=== PATIENT | male | born 1995 | race Hispanic/Latino ===

== ENCOUNTER 2020-01-15 12:03 | Emergency (ER) | payer OTHER ==
[~2020-01-15] VITALS: Ht 170.2 cm; Wt 87.1 kg
[2020-01-15 12:42] LABS: BASOPHILS # (AUTO) 0.1 (0.0-0.1); BASOPHILS % 0.8 % (0.0-1.0); EOSINOPHILS # (AUTO) 0.1 (0.0-0.4); EOSINOPHILS % 1.4 % (0.0-6.0); HEMATOCRIT 50.2 % (38.2-49.6); HEMOGLOBIN 17.8 g/dL (14.0-18.0); LYMPHOCYTES # (AUTO) 2.9 (1.0-3.2); LYMPHOCYTES % 40.4 % (18.0-39.1); MEAN CORPUSCULAR HEMOGLOBIN 30.4 pg (28-32); MEAN CORPUSCULAR HGB CONC 35.5 g/dL (31-35); MEAN CORPUSCULAR VOLUME 85.8 fL (81-99); MONOCYTES # (AUTO) 0.7 (0.2-0.8); MONOCYTES % 9.3 % (4.4-11.3); NEUTROPHILS # (AUTO) 3.4 (2.1-6.9); NEUTROPHILS % 47.8 % (38.7-80.0); PLATELET COUNT 317 x10e3/uL (140-360); RED BLOOD COUNT 5.85 x10e6/uL (4.3-5.7); RED CELL DISTRIBUTION WIDTH 12.4 % (11.7-14.4)
[2020-01-15 13:00] LABS: ALANINE AMINOTRANSFERASE 48 IU/L (0-55); ALBUMIN/GLOBULIN RATIO 1.3 (0.8-2.0); ALKALINE PHOSPHATASE 97 IU/L (40-150); BLOOD UREA NITROGEN 9 mg/dL (7-26); BUN/CREATININE RATIO 8 (6-25); CALCIUM 9.1 mg/dL (8.4-10.2); CARBON DIOXIDE 28 mmol/L (22-29); CHLORIDE 106 mmol/L (98-107); CREATININE, SERUM 1.06 mg/dL (0.72-1.25); EST GLOMERULAR FILTRATION RATE > 60 ML/MIN (60-); GLUCOSE 91 mg/dL (74-118); POTASSIUM 3.9 mmol/L (3.5-5.1); SODIUM 136 mmol/L (136-145)
[2020-01-15 13:08] LABS: ANION GAP 5.9 mmol/L (8-16)
[2020-01-15] MEDS ORDERED: SODIUM CHLORIDE 0.9% 100 ML ONE (13:23)
[2020-01-15] MEDS ORDERED: IOPAMIDOL 370 MG/ML 200 ML INFUS..BTL INJ ONE (13:23)
--- NOTE | 2020-01-15 14:59 | Diagnostic Imaging Report ---
History:Right-sided numbness Comparison studies:None Technique: Feel images were obtained from the vertex through the skull base following the administration of IV contrast. Coronal, sagittal as well as MIP and 3-D volume rendered reformats were obtained from the axial source data. Intravenous contrast: 100 cc of Omnipaque 300. Findings: Head CT: Scalp: No abnormalities. Bones: No fractures, blastic or lytic lesions. Brain sulci: Appropriate for age. Ventricles: Normal in size and configuration. No hydrocephalus. Extra-axial spaces: No masses, no fluid collection. Parenchyma: No abnormal densities. No masses, acute hemorrhage, acute or chronic vascular insults. Sellar/suprasellar region: No abnormalities. Craniocervical junction: Patent foramen magnum. No Chiari one malformation. Included paranasal sinuses: Clear. Middle ear mastoid cavities: Clear. Intracranial CTA: No aneurysm or arterial vascular malformation identified. Anterior circulation: Internal carotid arteries: Patent, no abnormalities. Anterior cerebral arteries: Patent, no proximal branch occlusion or stenosis. Middle cerebral arteries: Patent, no proximal branch occlusion or stenosis. Posterior circulation: Vertebral arteries: Patent, no abnormalities. Basilar artery: Patent, no abnormalities. Posterior cerebral arteries: Patent, no proximal branch occlusion or stenosis. Anatomical variants: Anterior communicating artery :Patent Posterior communicating arteries: Patent bilaterally Vertebral arteries: Dominant right vertebral artery. IMPRESSION: 1. No intra or abnormalities. 2. No major arterial branch occlusion or stenosis in the intracranial circulation. Signed by: Dr. Norman Mercedes M.D. on 01/15/2020 2:56 PM
[2020-01-15 15:36] VITALS: BP 116/71
== END 2020-01-15 15:53 | disposition home or self-care (01) ==
LOC: ER 12:03
DX: R20.1 Hypoesthesia of skin (principal)
CPT/HCPCS: 36415; 70496; 80053; 85025; 99284; J7050; Q9967